=== PATIENT | male | born 1975 ===

== ENCOUNTER 2024-09-25 06:23 | Day surgery (SDC) | payer OTHER, SELFPAY | END 2024-09-25 11:23 | disposition home or self-care (01) | LOC: GI 06:23 | PROVIDERS: ATTENDING PHYSICIAN Internal Medicine Gastroenterology | DX: R19.4 Change in bowel habit (principal); K64.8 Other hemorrhoids; D12.5 Benign neoplasm of sigmoid colon; K63.5 Polyp of colon | CPT/HCPCS: 45385; 88305 ==